=== PATIENT | male | born 1995 | race Caucasian/White ===

== ENCOUNTER 2017-07-05 12:32 | Emergency (ER) | payer BC ==
[2017-07-05 12:47] VITALS: RESP 16
--- NOTE | 2017-07-05 13:32 | EDPHY ---
H & P Stated Complaint: SORES ON PENIS - Personal History Current Tetanus/Diphtheria Vaccine: Yes Current Tetanus Diphtheria and Acellular Pertussis (TDAP): Yes - Medical/Surgical History Hx Asthma: No Hx Chronic Respiratory Disease: No Hx Diabetes: No Hx Cardiac Disease: No Hx Renal Disease: No Hx Cirrhosis: No Hx Alcoholism: No Hx HIV/AIDS: No Hx Splenectomy or Spleen Trauma: No Other PMH: DENIES - Social History Smoking Status: Never smoked HPI/ROS: Chief complaint: Balanitis History of present illness: This is a 22-year-old male, uncircumcised, who presents to the emergency department concerned he has balanitis. He has had this problem before. He did go to urgent care. He was given and single dose of oral antifungal medicine although he is not sure what it was and has been using Lamisil. Symptoms persist. Not only is the tip of the penis involved but the foreskin is as well. He can still retract and replace it although it is uncomfortable. He denies other associated signs symptoms including no difficulty urinating, no involvement of the scrotum or testicles. (Shan Solares) - Physical Exam Exam: General: Alert, nontoxic Skin: The glans of the penis is erythematous. The foreskin is erythematous and edematous however it is easily retracted and replaced. Genitourinary: The shaft of the penis, scrotum and the testicles including surrounding cord structures are unremarkable. (Shan Solares) Constitutional: Initial Vital Signs Temperature (C) 36.6 C 07/05/17 12:45 Heart Rate 98 07/05/17 12:45 Respiratory Rate 16 07/05/17 12:45 Blood Pressure 133/74 H 07/05/17 12:45 O2 Sat (%) 96 07/05/17 12:45 O2 Delivery Mode Room Air Allergies/Adverse Reactions: No Known Allergies Allergy (Unverified 07/05/17 12:44) Home Medications: Medication Instructions Recorded Cephalexin [Keflex (*)] 500 mg PO QID 7 Days cap 07/05/17 Clotrimazole/Betamethasone Dip 1 gudelia TP BID #1 tube 07/05/17 [Lotrisone Cream] Lotrimin 1% 07/05/17 Sulfamethox/Tmp 800/160 mg 1 tab PO BID #14 tab 07/05/17 [Bactrim Ds] Medical Decision Making ED Course/Re-evaluation: Patient is seen under the supervision of my secondary supervising physician Dr. Ubaldo Renteria. Patient presents to the emergency department concerned his balanitis is getting worse. He does appear to have a balanitis. No evidence of phimosis or paraphimosis. I have consulted with our urologist Dr. Godwin Castillo. He recommends Lotrisone cream and oral Keflex. Patient can follow up in his clinic. Home care is discussed with the patient. Return precautions are given. (Shan Solares) I did not see this patient while he was in the emergency department. However his care was discussed with the PA while the patient was in the department. I agree with treatment plan and management. I am the secondary supervising physician (Ubaldo Renteria) Departure - Departure Disposition: Home, Routine, Self-Care Clinical Impression: Balanitis Condition: Good Instructions: Balanitis (ED) Additional Instructions: Follow-up with a primary care doctor or urologist for continued care. If symptoms worsen or new symptoms develop, return to the emergency room for recheck. Referrals: UNKNOWN,UNKNOWN [Other] - As per Instructions Michael Castillo MD [Medical Doctor] - As per Instructions Prescriptions: Cephalexin [Keflex (*)] 500 mg PO QID 7 Days cap Clotrimazole/Betamethasone Dip [Lotrisone Cream] 1 gudelia TP BID #1 tube Sulfamethox/Tmp 800/160 mg [Bactrim Ds] 1 tab PO BID #14 tab
[2017-07-05 13:48] VITALS: BP 127/82; PULSE 89; TEMP 98.1; O2SAT 98
== END 2017-07-05 13:46 | disposition home or self-care (01) ==
DX: N48.1 Balanitis (principal)